=== PATIENT | female | born 1945 | race African-American/Black ===

== ENCOUNTER → 2024-04-29 07:15 | Outpatient (REF) | payer OTHER, SELFPAY | LOC: RCS 07:15 | PROVIDERS: ATTENDING PHYSICIAN Internal Medicine Geriatric Medicine | DX: R03.0 Elevated blood-pressure reading, without diagnosis of hypertension (principal); R01.1 Cardiac murmur, unspecified | CPT/HCPCS: 93306 ==

== ENCOUNTER → 2024-08-04 16:01 | Outpatient (REF) | payer OTHER, SELFPAY | LOC: RAD 16:01 | PROVIDERS: ATTENDING PHYSICIAN Obstetrics & Gynecology; FAMILY PHYSICIAN Internal Medicine Geriatric Medicine | DX: N95.0 Postmenopausal bleeding (principal) | CPT/HCPCS: 76830; 76856 ==

== ENCOUNTER → 2024-08-08 08:00 | Outpatient (REF) | payer OTHER, SELFPAY | LOC: RAD 08:00 | PROVIDERS: ATTENDING PHYSICIAN Internal Medicine; FAMILY PHYSICIAN Internal Medicine Geriatric Medicine | DX: M81.0 Age-related osteoporosis without current pathological fracture (principal) | CPT/HCPCS: 77080 ==

== ENCOUNTER → 2024-09-30 07:19 | Outpatient (REF) | payer OTHER, SELFPAY | LOC: WDC 07:19 | PROVIDERS: ATTENDING PHYSICIAN Obstetrics & Gynecology; FAMILY PHYSICIAN Internal Medicine Geriatric Medicine | DX: Z12.31 Encounter for screening mammogram for malignant neoplasm of breast (principal) | CPT/HCPCS: 77063; 77067 ==

== ENCOUNTER → 2024-10-09 08:35 | Outpatient (REF) | payer OTHER, SELFPAY | LOC: WDC 08:35 | PROVIDERS: ATTENDING PHYSICIAN Obstetrics & Gynecology; FAMILY PHYSICIAN Internal Medicine Geriatric Medicine | DX: R92.8 Other abnormal and inconclusive findings on diagnostic imaging of breast (principal) | CPT/HCPCS: 77065 ==

== ENCOUNTER → 2024-10-14 07:06 | Outpatient (REF) | payer OTHER, SELFPAY ==
--- NOTE | 2024-10-14 09:20 | OID.BR.INTR ---
[facility] Breast Navigator - Initial
- -
Date of Contact: 10/14/24
Met with patient. Patient given written information on navigator services available at [facility]. Will follow up as needed per protocol.
== END ==
LOC: WDC 07:06
PROVIDERS: ATTENDING PHYSICIAN Obstetrics & Gynecology
DX: R92.1 Mammographic calcification found on diagnostic imaging of breast (principal)
CPT/HCPCS: 88305; 19081; 76098; A4648

== ENCOUNTER 2024-11-19 06:33 | Day surgery (SDC) | payer OTHER, SELFPAY ==
[2024-11-06 08:51] LABS: % Basophils 0.9 % (0-2); % Eosinophils 2.6 % (0-6); % Immature Granulocytes 0.3 % (0-0.5); % Lymphocytes 36.4 % (20.5-51.1); % Monocytes 8.4 % (1.7-9.3); % Neutrophils 51.4 % (42.2-75.2); Absolute Basophils 0.1 10^3/uL (0-0.2); Absolute Eosinophils 0.2 10^3/uL (0-0.7); Absolute Lymphocytes 2.1 10^3/uL (1.2-3.4); Absolute Monocytes 0.5 10^3/uL (0.1-0.6); Hematocrit 37.8 % (37.0-47.0); Hemoglobin 12.8 g/dL (12.0-16.0); Mean Corp Hgb Conc. 33.9 g/dL (33.0-37.0); Mean Corpuscular Hgb 26.4 pg (27.0-31.0); Mean Corpuscular Volume 77.9 fL (81.0-99.0); Mean Platelet Volume 11.4 fL (7.4-10.4); Nucleated Red Blood Cells % 0 %; Platelet Count 185 10^3/uL (130-400); Red Blood Cell Count 4.85 10^6/uL (4.20-5.40); Red Cell Dist. Width 15.2 % (11.5-14.5); White Blood Cell Count 5.8 10^3/uL (4.8-10.8)
[2024-11-06 11:04] LABS: Blood Urea Nitrogen 9 mg/dl (7-17); Calcium 8.8 mg/dl (8.4-10.2); Carbon Dioxide 24 mmol/L (22-30); Chloride 107 mmol/L (98-107); Glucose 94 mg/dl (70-99); Potassium 4.2 mmol/L (3.5-5.1); Sodium 140 mmol/L (135-145); eGFR > 60.00
[2024-11-06 13:36] VITALS: BMI 28.3
--- NOTE | 2024-11-07 14:30 | PTCARENOTE ---
Patients 11/06 ECG abnormal- reviewed by Dr. Garza- no additional interventions required
[2024-11-19] VITALS (9 sets, daily range): BP systolic 140–178; BP diastolic 77–138; BMI 28.3
[2024-11-19] MEDS: TYLENOL 1000 MG PO (10:50)
[2024-11-19] MEDS: NEURONTIN 100 MG PO (10:50)
--- NOTE | 2024-11-19 17:31 | W.IMMPOSTOP ---
Surgical Immed Post Op Note
-
Primary Surgeon: Anita Fuentes DO
Assisting Surgeon: n/a
Pre-op Diagnosis: Postmenopausal bleeding, hx cystocele and pessary use
Post-op Diagnosis: same
Procedure Performed: diagnostic hysteroscopy
Anesthesia Type: general LMA Dr. Menjivar
Specimen / Cultures: none
Estimated Blood Loss: less than 2 ml
Complications: unable to complete procedure due to abnormal appearing findings.
Operative Findings: Cervix dilated easily. Uterus gently sounded to 5.5cm. Abnormal appearing findings with hysteroscopy. Webbing of tissue
raising suspicion for false tract, scar tissue more so than perforation. Tubal ostia not seen. Ended procedure without performing any biopsy.
Cystocele noted. (hx of pessary use). There was fluid deficit of 300ml NSS.
Counts correct times 2.
Stable to recovery.
--- NOTE | 2024-11-19 17:37 | W.PN.UPDATE ---
Update Note
Progress Note Update
Saw Kristen in recovery.
She is feeling well and no concerns.
Denies any dizziness or lightheadedness, no significant bleeding, no pain
VSS afeb
Abd: soft NDNT
minimal light staining onto pad
A/P:
Postop s/p dx hysteroscopy. No bx taken due to appearance of webbing of tissue raising concern for
scar tissue, false tract. Perforation was not truly suspected due to no difficulty inserting silastic dilator
and no sign except unable to visualize normal cavity and loss of some saline soln.
Decided to forego bx as to reduce risk of injury due to abnormal appearing findings.
Discussed all of this with Kristen. Offered to keep her overnight to observe and repeat labs. She really wants to go home and feels fine.
Lives very close to hospital and is with her daughter.
Agrees to contact me or return to hospital if she has any abdominal or pelvic pain, fever, bleeding more than light spotting.
== END 2024-11-19 18:18 | disposition home or self-care (01) ==
LOC: SDS 06:33
PROVIDERS: ATTENDING PHYSICIAN Obstetrics & Gynecology; FAMILY PHYSICIAN Internal Medicine Geriatric Medicine
DX: N81.10 Cystocele, unspecified (principal); N95.0 Postmenopausal bleeding; N88.8 Other specified noninflammatory disorders of cervix uteri; R93.89 Abnormal findings on diagnostic imaging of other specified body structures; Z87.42 Personal history of other diseases of the female genital tract
CPT/HCPCS: 58555; 80048; 85025; 86850; 86900; 86901; 93005

== ENCOUNTER → 2025-10-02 15:12 | Outpatient (REF) | payer OTHER, SELFPAY | LOC: WDC 15:12 | PROVIDERS: ATTENDING PHYSICIAN Nurse Practitioner Adult Health | DX: Z12.31 Encounter for screening mammogram for malignant neoplasm of breast (principal) | CPT/HCPCS: 77063; 77067 ==